=== PATIENT | female | born 1985 | race Caucasian/White ===

== ENCOUNTER 2016-09-02 20:38 | Emergency (ER) | payer BC, OTHER ==
[~2016-09-02] VITALS: Ht 167.6 cm; Wt 94.3 kg
[~2016-09-02 20:38] MED LIST: ENOX100D SQ
[2016-09-02 21:10] LABS: BASOPHILS # (AUTO) 0.1 /CMM (0.0-0.2); BASOPHILS % (AUTO) 0.5 % (0.0-2.0); DIFF TOTAL % 100 %; EOSINOPHILS # (AUTO) 0.3 /CMM (0.0-0.7); HEMATOCRIT 42 % (33-45); HEMOGLOBIN 14.4 g/dL (11.5-14.8); LYMPHOCYTES # (AUTO) 3.4 /CMM (0.8-4.8); LYMPHOCYTES % (AUTO) 27.2 % (20.0-44.0); MEAN CORPUSCULAR HEMOGLOBIN 28 PG (26.0-33.0); MEAN CORPUSCULAR HGB CONC 34 g/dl (31.0-36.0); MEAN CORPUSCULAR VOLUME 83 fL (82-100); MONOCYTES % (AUTO) 7.7 % (2.0-12.0); NEUTROPHILS # (AUTO) 7.8 /CMM (1.8-8.9); NEUTROPHILS % (AUTO) 62.6 % (43.0-81.0); PLATELET COUNT (AUTO) 348 /CMM (150-450); RED BLOOD CELL COUNT(AUTO) 5.07 MIL/uL (4.0-5.2); WHITE BLOOD COUNT (AUTO) 12.6 K/uL (4.3-11.0)
[2016-09-02 21:22] LABS: ANION GAP 13 (5-14); CALCIUM, SERUM 8.7 mg/dL (8.5-10.1); CARBON DIOXIDE 27 mmol/L (21-32); CHLORIDE 102 mmol/L (98-107); CREATININE 0.8 mg/dL (0.6-1.3); GFR 85 mL/min (>60); GLUCOSE 86 mg/dL (74-106); POTASSIUM 4.2 mmol/L (3.5-5.1); SODIUM SERUM 137 mmol/L (136-145); UREA NITROGEN, BLOOD 12 mg/dL (7-18)
[2016-09-02 21:25] LABS: INR 1.05 (0.87-1.13)
[2016-09-02 21:30] LABS: TROPONIN I < 0.017 ng/mL (0.00-0.056)
[2016-09-02] MEDS ORDERED: IV NS 0.9% 1,000 ML ONE (23:25)
[2016-09-02] MEDS ORDERED: IV SET PRIMARY 1 EA INFUS.SET MC ONE (23:25)
[2016-09-02] MEDS ORDERED: IV NS 0.9% 250 ML IV ONE (23:30)
[2016-09-02] MEDS ORDERED: CT SWABBABLE VALVE TRANS SET 1 EA INFUS.SET MC ONE (23:30)
[2016-09-02] MEDS ORDERED: IV NS 0.9% 1,000 ML BAG IV ONE (23:30)
[2016-09-02] MEDS ORDERED: IOHEXOL-350 100 ML VIAL IV ONE (23:30)
[2016-09-03 01:17] VITALS: BP 124/67
== END 2016-09-03 01:27 | disposition home or self-care (01) ==
LOC: ER 20:38
DX: R00.2 Palpitations (principal); Z88.1 Allergy status to other antibiotic agents; R79.1 Abnormal coagulation profile
CPT/HCPCS: 36415; 71010; 71275; 80048; 84484; 85025; 85730; 93005 ×2; 93970; 99285; A4606; J7030; J7050; Q9967; Z7610

== ENCOUNTER → 2016-09-06 | Outpatient (CLI) | payer BC, OTHER ==
[2016-09-06 11:01] LABS: BASOPHILS % (AUTO) 0.3 % (0.0-2.0); EOSINOPHILS % (AUTO) 0.1 % (0.0-6.0); HEMATOCRIT 44 % (33-45); HEMOGLOBIN 14.4 g/dL (11.5-14.8); LYMPHOCYTES # (AUTO) 1.9 /CMM (0.8-4.8); LYMPHOCYTES % (AUTO) 24.1 % (20.0-44.0); MEAN CORPUSCULAR HEMOGLOBIN 28 PG (26.0-33.0); MEAN CORPUSCULAR HGB CONC 33 g/dl (31.0-36.0); MEAN CORPUSCULAR VOLUME 84 fL (82-100); MONOCYTES # (AUTO) 0.5 /CMM (0.1-1.30); MONOCYTES % (AUTO) 6.2 % (2.0-12.0); NEUTROPHILS # (AUTO) 5.6 /CMM (1.8-8.9); NEUTROPHILS % (AUTO) 69.3 % (43.0-81.0); PLATELET COUNT (AUTO) 348 /CMM (150-450); RDW COEFFICIENT OF VARIATION 13.5 (11.5-15.0); RED BLOOD CELL COUNT(AUTO) 5.17 MIL/uL (4.0-5.2); WHITE BLOOD COUNT (AUTO) 8.1 K/uL (4.3-11.0)
[2016-09-06 11:17] LABS: ALBUMIN 4.1 g/dL (3.4-5.0); BILIRUBIN,TOTAL 0.5 mg/dL (0.2-1.0); CALCIUM, SERUM 8.9 mg/dL (8.5-10.1); CREATININE 0.7 mg/dL (0.6-1.3); POTASSIUM 4.3 mmol/L (3.5-5.1); TOTAL PROTEIN, SERUM 8.2 g/dL (6.4-8.2)
[2016-09-06 11:28] LABS: THYROID STIMULATING HORMONE 2.353 uIU/mL (0.358-3.74); URIC ACID 4.4 mg/dL (2.6-7.2)
[2016-09-07 12:30] LABS: HEPATITIS B SURFACE AB Reactive (.); HEPATITIS C VIRUS AB <0.1 s/co ratio (0.0-0.9)
== END ==
LOC: LAB 10:08
PROVIDERS: ATTEND Internal Medicine Hematology & Oncology
DX: I82.412 Acute embolism and thrombosis of left femoral vein (principal); Z86.718 Personal history of other venous thrombosis and embolism; Z79.01 Long term (current) use of anticoagulants
CPT/HCPCS: 36415; 80053-TC; 80061-TC; 82728-TC; 82746; 83540-TC; 84439-TC; 84443-TC; 84550-TC; 85025-TC; 86706; 86803

== ENCOUNTER 2016-09-19 09:01 | Outpatient (CLI) | payer BC, OTHER | END 2016-09-19 23:59 | disposition home or self-care (01) | LOC: CARD 09:01 | PROVIDERS: ATTEND Legal Medicine | DX: I49.8 Other specified cardiac arrhythmias (principal) | CPT/HCPCS: 93307-TC ==

== ENCOUNTER 2016-10-14 09:58 | Outpatient (CLI) | payer BC, OTHER ==
[2016-10-14 10:57] LABS: BASOPHILS % (AUTO) 0.5 % (0.0-2.0); EOSINOPHILS # (AUTO) 0.1 /CMM (0.0-0.7); EOSINOPHILS % (AUTO) 1.2 % (0.0-6.0); HEMATOCRIT 41 % (33-45); HEMOGLOBIN 13.6 g/dL (11.5-14.8); LYMPHOCYTES # (AUTO) 1.7 /CMM (0.8-4.8); LYMPHOCYTES % (AUTO) 21.8 % (20.0-44.0); MEAN CORPUSCULAR HEMOGLOBIN 28 PG (26.0-33.0); MEAN CORPUSCULAR HGB CONC 33 g/dl (31.0-36.0); MEAN CORPUSCULAR VOLUME 84 fL (82-100); MONOCYTES # (AUTO) 0.4 /CMM (0.1-1.30); NEUTROPHILS # (AUTO) 5.6 /CMM (1.8-8.9); NEUTROPHILS % (AUTO) 71.5 % (43.0-81.0); PLATELET COUNT (AUTO) 346 /CMM (150-450); RDW COEFFICIENT OF VARIATION 13.4 (11.5-15.0); WHITE BLOOD COUNT (AUTO) 7.8 K/uL (4.3-11.0)
[2016-10-14 11:13] LABS: ALBUMIN 3.8 g/dL (3.4-5.0); BILIRUBIN,TOTAL 0.3 mg/dL (0.2-1.0); CALCIUM, SERUM 8.6 mg/dL (8.5-10.1); CREATININE 0.8 mg/dL (0.6-1.3); POTASSIUM 4.2 mmol/L (3.5-5.1); TOTAL PROTEIN, SERUM 7.9 g/dL (6.4-8.2)
== END 2016-10-14 23:59 | disposition home or self-care (01) ==
LOC: LAB 09:58
PROVIDERS: ATTEND Internal Medicine Hematology & Oncology
DX: I82.412 Acute embolism and thrombosis of left femoral vein (principal); D68.59 Other primary thrombophilia; Z86.718 Personal history of other venous thrombosis and embolism; Z79.01 Long term (current) use of anticoagulants
CPT/HCPCS: 80053-TC; 85025-TC; 85378-TC

== ENCOUNTER 2016-11-08 15:25 | Outpatient (CLI) | payer BC, OTHER ==
[2016-11-08 17:19] LABS: BASOPHILS % (AUTO) 0.2 % (0.0-2.0); HEMATOCRIT 42 % (33-45); HEMOGLOBIN 13.6 g/dL (11.5-14.8); LYMPHOCYTES # (AUTO) 2.8 /CMM (0.8-4.8); LYMPHOCYTES % (AUTO) 24.4 % (20.0-44.0); MEAN CORPUSCULAR HEMOGLOBIN 28 PG (26.0-33.0); MEAN CORPUSCULAR HGB CONC 33 g/dl (31.0-36.0); MEAN CORPUSCULAR VOLUME 85 fL (82-100); MONOCYTES # (AUTO) 0.9 /CMM (0.1-1.30); MONOCYTES % (AUTO) 7.9 % (2.0-12.0); NEUTROPHILS # (AUTO) 7.8 /CMM (1.8-8.9); NEUTROPHILS % (AUTO) 67.5 % (43.0-81.0); PLATELET COUNT (AUTO) 386 /CMM (150-450); RDW COEFFICIENT OF VARIATION 13.6 (11.5-15.0); RED BLOOD CELL COUNT(AUTO) 4.91 MIL/uL (4.0-5.2); WHITE BLOOD COUNT (AUTO) 11.6 K/uL (4.3-11.0)
[2016-11-09 11:10] LABS: HEPATITIS B SURFACE AB Reactive (.); HEPATITIS C VIRUS AB <0.1 s/co ratio (0.0-0.9)
== END 2016-11-08 23:59 | disposition home or self-care (01) ==
LOC: LAB 15:25
PROVIDERS: ATTEND Internal Medicine Hematology & Oncology
DX: I82.412 Acute embolism and thrombosis of left femoral vein (principal); D68.59 Other primary thrombophilia; Z86.718 Personal history of other venous thrombosis and embolism; Z99.0 Dependence on aspirator
CPT/HCPCS: 36415; 85025-TC; 85378-TC; 86706; 86803

== ENCOUNTER 2016-12-13 12:21 | Outpatient (CLI) | payer BC, OTHER ==
[2016-12-13 14:00] LABS: BASOPHILS % (AUTO) 0.1 % (0.0-2.0); HEMATOCRIT 41 % (33-45); HEMOGLOBIN 13.8 g/dL (11.5-14.8); LYMPHOCYTES # (AUTO) 2.4 /CMM (0.8-4.8); LYMPHOCYTES % (AUTO) 24.7 % (20.0-44.0); MEAN CORPUSCULAR HEMOGLOBIN 28 PG (26.0-33.0); MEAN CORPUSCULAR HGB CONC 34 g/dl (31.0-36.0); MEAN CORPUSCULAR VOLUME 85 fL (82-100); MONOCYTES # (AUTO) 0.5 /CMM (0.1-1.30); MONOCYTES % (AUTO) 5.5 % (2.0-12.0); NEUTROPHILS # (AUTO) 6.9 /CMM (1.8-8.9); NEUTROPHILS % (AUTO) 69.7 % (43.0-81.0); PLATELET COUNT (AUTO) 351 /CMM (150-450); RDW COEFFICIENT OF VARIATION 13.5 (11.5-15.0); RED BLOOD CELL COUNT(AUTO) 4.84 MIL/uL (4.0-5.2); WHITE BLOOD COUNT (AUTO) 9.9 K/uL (4.3-11.0)
[2016-12-13 14:04] LABS: ALBUMIN 3.9 g/dL (3.4-5.0); BILIRUBIN,TOTAL 0.5 mg/dL (0.2-1.0); CALCIUM, SERUM 8.7 mg/dL (8.5-10.1); CREATININE 0.7 mg/dL (0.6-1.3)
[2016-12-13 14:53] LABS: EOSINOPHILS % (MANUAL) 1 % (0-4); LYMPHOCYTES % (MANUAL) 26 % (16-48); MONOCYTES % (MANUAL) 4 % (0-11.0); NEUTROPHILS % (MANUAL) 69 (42-76)
== END 2016-12-13 23:59 | disposition home or self-care (01) ==
LOC: LAB 12:21
PROVIDERS: ATTEND Internal Medicine Hematology & Oncology
DX: I82.412 Acute embolism and thrombosis of left femoral vein (principal); D68.59 Other primary thrombophilia; Z79.01 Long term (current) use of anticoagulants; Z86.718 Personal history of other venous thrombosis and embolism
CPT/HCPCS: 36415; 80053-TC; 82746; 85025-TC; 85378-TC

== ENCOUNTER 2016-12-14 07:13 | Emergency (ER) | payer BC, OTHER ==
[~2016-12-14] VITALS: Ht 167.6 cm; Wt 95.3 kg
--- NOTE | 2016-12-14 07:13 | NUR ---
C/C CHEST PAIN / PRESSURE SINCE 0500 THIS AM. NON RADIATING. PT DESCRIBES 12/30. RR EVEN AND UNLABORED. PT AAO X4, AMBULATORY WITH STEADY GAIT. VSS. DR MILNER AT BEDSIDE FOR EVAL. PT PLACED IN GOWN AND MONITOR.
--- NOTE | 2016-12-14 07:20 | NUR ---
EKG DONE AT BEDSIDE.
--- NOTE | 2016-12-14 07:30 | NUR ---
IV ACCESS STARTED. BLOOD DRAWN FOR LABS.
[2016-12-14 07:36] LABS: BASOPHILS % (AUTO) 0.3 % (0.0-2.0); EOSINOPHILS # (AUTO) 0.1 /CMM (0.0-0.7); EOSINOPHILS % (AUTO) 0.8 % (0.0-6.0); HEMATOCRIT 39 % (33-45); HEMOGLOBIN 13.4 g/dL (11.5-14.8); LYMPHOCYTES # (AUTO) 1.7 /CMM (0.8-4.8); LYMPHOCYTES % (AUTO) 18.3 % (20.0-44.0); MEAN CORPUSCULAR HEMOGLOBIN 29 PG (26.0-33.0); MEAN CORPUSCULAR HGB CONC 34 g/dl (31.0-36.0); MEAN CORPUSCULAR VOLUME 84 fL (82-100); MONOCYTES # (AUTO) 0.5 /CMM (0.1-1.30); MONOCYTES % (AUTO) 5.6 % (2.0-12.0); NEUTROPHILS # (AUTO) 6.9 /CMM (1.8-8.9); PLATELET COUNT (AUTO) 321 /CMM (150-450); RDW COEFFICIENT OF VARIATION 13.6 (11.5-15.0); RED BLOOD CELL COUNT(AUTO) 4.64 MIL/uL (4.0-5.2); WHITE BLOOD COUNT (AUTO) 9.2 K/uL (4.3-11.0)
[2016-12-14 07:48] LABS: CALCIUM, SERUM 8.5 mg/dL (8.5-10.1); CARBON DIOXIDE 27 mmol/L (21-32); CHLORIDE 102 mmol/L (98-107); CREATININE 0.9 mg/dL (0.6-1.3); GLUCOSE 136 mg/dL (74-106); POTASSIUM 3.8 mmol/L (3.5-5.1); SODIUM SERUM 137 mmol/L (136-145); UREA NITROGEN, BLOOD 13 mg/dL (7-18)
[2016-12-14 08:01] LABS: TROPONIN I < 0.017 ng/mL (0.00-0.056)
[2016-12-14 08:06] LABS: INR 1.21 (0.87-1.13); PROTHROMBIN TIME 13.1 SECS (9.5-12.7)
[2016-12-14] MEDS ORDERED: IV SET PRIMARY PUMP SET 1 EA INFUS.SET MC ONE (08:35)
[2016-12-14] MEDS ORDERED: IV SET PRIMARY 1 EA INFUS.SET MC ONE (08:35)
[2016-12-14] MEDS ORDERED: ONDANSETRON HCL/PF 4 MG/2 ML VIAL ONE (08:35)
[2016-12-14] MEDS ORDERED: IV NS 0.9% 500 ML IV ONE ×2 (08:35→09:00)
--- NOTE | 2016-12-14 08:45 | NUR ---
AT TO UPDATE PT WITH TESTS RESULTS. NEW ORDERS RECEIVED, PT MEDICATED ORDERED. WILL MONITOR.
[2016-12-14 08:49] LABS: CALCIUM, SERUM 8.4 mg/dL (8.5-10.1); CREATININE 0.9 mg/dL (0.6-1.3); POTASSIUM 3.9 mmol/L (3.5-5.1)
[2016-12-14 08:55] LABS: ALBUMIN 3.6 g/dL (3.4-5.0); BILIRUBIN,TOTAL 0.4 mg/dL (0.2-1.0); TOTAL PROTEIN, SERUM 7.6 g/dL (6.4-8.2)
[2016-12-14] MEDS ORDERED: ONDANSETRON HCL/PF - ER 4 MG/2 ML VIAL IV ONE (09:00)
--- NOTE | 2016-12-14 09:30 | NUR ---
IV removed. Catheter intact and site benign. Pressure and 4x4 applied to site. No bleeding noted.
--- NOTE | 2016-12-14 09:48 | NUR ---
Patient discharged to home in stable condition. Written and verbal after care instructions given. Patient verbalizes understanding of instruction.
[2016-12-14 09:49] VITALS: BP 136/71
== END 2016-12-14 09:49 | disposition home or self-care (01) ==
LOC: ER 07:15
DX: R07.89 Other chest pain (principal); D68.51 Activated protein C resistance; Z86.718 Personal history of other venous thrombosis and embolism; Z88.0 Allergy status to penicillin
CPT/HCPCS: 36415; 71010-TC; 80048-TC; 80053-TC; 84484-TC; 85025-TC; 85730-TC; A4606; J2405; J7040; Z7610

== ENCOUNTER 2016-12-23 09:25 | Outpatient (CLI) | payer BC, OTHER | END 2016-12-23 23:59 | disposition home or self-care (01) | LOC: US 09:25 | PROVIDERS: ATTEND Legal Medicine | DX: R10.11 Right upper quadrant pain (principal) | CPT/HCPCS: 76700; 78226; A9537 ==

== ENCOUNTER 2017-01-13 12:50 | Outpatient (CLI) | payer BC, OTHER ==
[2017-01-13 13:35] LABS: BASOPHILS % (AUTO) 0.2 % (0.0-2.0); HEMATOCRIT 39 % (33-45); HEMOGLOBIN 13.4 g/dL (11.5-14.8); LYMPHOCYTES # (AUTO) 2.5 /CMM (0.8-4.8); LYMPHOCYTES % (AUTO) 20.4 % (20.0-44.0); MEAN CORPUSCULAR HEMOGLOBIN 29 PG (26.0-33.0); MEAN CORPUSCULAR HGB CONC 34 g/dl (31.0-36.0); MEAN CORPUSCULAR VOLUME 84 fL (82-100); MONOCYTES # (AUTO) 0.7 /CMM (0.1-1.30); MONOCYTES % (AUTO) 5.8 % (2.0-12.0); NEUTROPHILS # (AUTO) 8.9 /CMM (1.8-8.9); NEUTROPHILS % (AUTO) 73.6 % (43.0-81.0); PLATELET COUNT (AUTO) 336 /CMM (150-450); RDW COEFFICIENT OF VARIATION 13.2 (11.5-15.0); RED BLOOD CELL COUNT(AUTO) 4.69 MIL/uL (4.0-5.2); WHITE BLOOD COUNT (AUTO) 12.1 K/uL (4.3-11.0)
[2017-01-13 13:45] LABS: AMYLASE 52 U/L (25-115); LIPASE 127 U/L (73-393)
[2017-01-13 15:03] LABS: LYMPHOCYTES % (MANUAL) 21 % (16-48); MONOCYTES % (MANUAL) 4 % (0-11.0); NEUTROPHILS % (MANUAL) 75 (42-76)
== END 2017-01-13 23:59 | disposition home or self-care (01) ==
LOC: LAB 12:50
PROVIDERS: ATTEND Internal Medicine Hematology & Oncology
DX: D68.59 Other primary thrombophilia (principal); I82.412 Acute embolism and thrombosis of left femoral vein; R10.9 Unspecified abdominal pain; Z79.01 Long term (current) use of anticoagulants
CPT/HCPCS: 36415; 82150-TC; 83690-TC; 85025-TC; 85378-TC

== ENCOUNTER 2017-02-04 07:28 | Outpatient (CLI) | payer BC ==
[2017-02-04 08:28] LABS: BASOPHILS % (AUTO) 0.2 % (0.0-2.0); HEMATOCRIT 41 % (33-45); HEMOGLOBIN 13.8 g/dL (11.5-14.8); LYMPHOCYTES # (AUTO) 1.7 /CMM (0.8-4.8); MEAN CORPUSCULAR HEMOGLOBIN 28 PG (26.0-33.0); MEAN CORPUSCULAR HGB CONC 34 g/dl (31.0-36.0); MEAN CORPUSCULAR VOLUME 84 fL (82-100); MONOCYTES # (AUTO) 0.6 /CMM (0.1-1.30); MONOCYTES % (AUTO) 5.2 % (2.0-12.0); NEUTROPHILS % (AUTO) 79.6 % (43.0-81.0); PLATELET COUNT (AUTO) 361 /CMM (150-450); RDW COEFFICIENT OF VARIATION 13.4 (11.5-15.0); RED BLOOD CELL COUNT(AUTO) 4.88 MIL/uL (4.0-5.2); WHITE BLOOD COUNT (AUTO) 11.3 K/uL (4.3-11.0)
[2017-02-04 08:37] LABS: CALCIUM, SERUM 8.8 mg/dL (8.5-10.1); CREATININE 0.9 mg/dL (0.6-1.3); POTASSIUM 3.9 mmol/L (3.5-5.1)
[2017-02-04 08:38] LABS: ALBUMIN 3.9 g/dL (3.4-5.0); BILIRUBIN,TOTAL 0.2 mg/dL (0.2-1.0); TOTAL PROTEIN, SERUM 8.1 g/dL (6.4-8.2)
== END 2017-02-04 23:59 | disposition home or self-care (01) ==
LOC: LAB 07:28
PROVIDERS: ATTEND Internal Medicine Hematology & Oncology
DX: I82.412 Acute embolism and thrombosis of left femoral vein (principal); D68.59 Other primary thrombophilia; Z79.01 Long term (current) use of anticoagulants
CPT/HCPCS: 36415; 80053-TC; 82746; 85025-TC; 85378-TC

== ENCOUNTER 2017-02-14 10:58 | Inpatient (IN) | payer BC ==
[~2017-02-14] VITALS: Ht 167.6 cm; Wt 95.3 kg
[2017-02-14] MEDS ORDERED: BUPIVACAINE MPF W/EPI 0.25% 30 ML VIAL ONE (12:45)
[2017-02-14] MEDS ORDERED: LIDOCAINE 0.5% HCL 50 ML VIAL ONE (12:45)
[2017-02-14] MEDS ORDERED: IOHEXOL 240MG/ML 50 ML IV ONE (13:05)
[2017-02-14] MEDS ORDERED: FENTANYL PF 250MCG/5ML AMPUL ONE (13:18)
[2017-02-14] MEDS ORDERED: MIDAZOLAM HCL 2 MG/2ML VIAL ONE (13:19)
[2017-02-14] MEDS ORDERED: METOCLOPRAMIDE HCL 10 MG/2 ML VIAL ONE ×2 (13:19→22:02)
[2017-02-14] MEDS ORDERED: ROCURONIUM BROMIDE 50 MG/5 ML ONE (13:19)
[2017-02-14] MEDS ORDERED: METRONIDAZOLE 500MG/ NS 100ML 100 ML IV ONE (13:49)
[2017-02-14] MEDS ORDERED: HYDROMORPHONE 1 MG/1 ML DISP.SYRIN ONE ×2 (15:17→15:29)
[2017-02-14] MEDS ORDERED: ONDANSETRON HCL/PF 4 MG/2 ML VIAL IVP PRN ×2 (15:30→22:00)
[2017-02-14] MEDS ORDERED: HYDROCODONE/APAP 5/325MG 1 EACH TABLET PO PRN ×2 (15:30→22:00)
[2017-02-14] MEDS ORDERED: ACETAMINOPHEN 325 MG TABLET PO PRN ×2 (15:30→22:00)
[2017-02-14] MEDS ORDERED: HYDROMORPHONE INJ 2 MG/ML DISP.SYRIN IV PRN (15:30)
[2017-02-14] MEDS ORDERED: HYDROMORPHONE INJ 2 MG/ML DISP.SYRIN IV ONE (16:03)
[2017-02-14] MEDS ORDERED: HYDROMORPHONE 1 MG/1 ML DISP.SYRIN IV PRN (16:15)
--- NOTE | 2017-02-14 16:24 | NUR ---
MS RADIOLOGY TECHNOLOGIST NOTE PATIENT IS ALERT AND ORIENTED x4. PATIENT STATES 8/10 PAIN, ABDOMINAL AREA. PATIENT MEDICATION GIVEN. NO SOB OR DISTRESS NOTED. CALL LIGHT WITHIN REACH. SAFETY MEASURES IMPLEMENTED. IV ON LEFT AC INTACT AND PATENT NO REDNESS OR SWELLING NOTED. ABLE TO COMMUNICATE NEEDS. POST-OP LAP CELINA DONE BY DR. HOBBS. ALL BELONGINGS ACCOUNTED FOR. WILL CONTINUE TO MONITOR
--- NOTE | 2017-02-14 18:30 | NUR ---
MS RN CLOSING NOTE PATIENT IS ALERT AND ORIENTED x4. NO PAIN AT THIS TIME. NO SOB OR DISTRESS NOTED. CALL LIGHT WITHIN REACH AT ALL TIMES. SAFETY MEASURES IMPLEMENTED. ABLE TO COMMUNICATE NEEDS. IV INTACT AND PATENT NO REDNESS OR SWELLING NOTED. WILL ENDORSE TO PRODUCER NURSE
[2017-02-14 20:00] VITALS: BP 130/76
--- NOTE | 2017-02-14 20:00 | NUR ---
MS RN N9
--- NOTE | 2017-02-14 20:00 | NUR ---
MS RN NOTE: PATIENT RESTING IN BED, NO ACUTE DISTRESS NOTED, MOM AT BEDSIDE. BREATHING EVEN AND UNLABORED, NO SOB NOTED. IV TO LAC IN PLACE. PATIENT COMPLAINS OF NAUSEA/VOMITING EARLIER WITH ABOUT 300ML OF HER DINNER. PATIENT ALREADY RECEIVED ZOFRAN AT 1800. PATIENT COMPLAINS OF PAIN 6/10 TO ABDOMEN, NORCO 5/325MG 1 TAB ORAL GIVEN PER MD ORDER. INCISION SITES TO ABDOMEN, CLEAN AND DRY, NO BLEEDING NOTED. ICE BAG AT BEDSIDE. HOB ELEVATED. BED LOCKED AND IN LOWEST POSITION, CALL LIGHT IN REACH. WILL CONTINUE TO MONITOR.
[2017-02-14] MEDS ORDERED: IV NS 0.9% 1,000 ML IV PRN (21:45)
[2017-02-14] MEDS ORDERED: MAG HYDROX/AL HYDROX/SIMETH 30 ML UDC PO PRN (22:00)
[2017-02-14] MEDS ORDERED: Z GUARD REMEDY 2 OZ OINT TP PRN (22:00)
[2017-02-14] MEDS ORDERED: MAGNESIUM HYDROXIDE 30 ML UDC PO PRN (22:00)
[2017-02-14] MEDS ORDERED: METOCLOPRAMIDE HCL 10 MG/2 ML VIAL IV PRN (22:00)
[2017-02-14] MEDS ORDERED: ZOLPIDEM TARTRATE 5 MG TABLET PO PRN (22:00)
[2017-02-14] MEDS: HYDROCODONE/APAP 5/325MG 1 EACH TABLET PO PRN (22:29)
--- NOTE | 2017-02-14 22:30 | NUR ---
MS RN NOTE: PATIENT CONTINUES TO FEEL NAUSEA AND ABDOMINAL PAIN. NORCO 5/325MG 2 TABS ORAL GIVEN PER MD ORDER. CALL RESTORATION OFFICER MD, SPOKE TO DR. TREVINO, RECEIVE ADMIT ORDERS AND ORDERS FOR REGLAN 10MG IV. REGLAN 10MG IV GIVEN PER MD ORDER. WILL CONTINUE TO MONITOR.
[2017-02-15] MEDS ORDERED: RIVA10TA PO ×2 (00:11→00:14)
--- NOTE | 2017-02-15 01:30 | NUR ---
MS RN NOTE: CLARIFIED PATIENT ANTICOAGULANT MEDICATIONS. PER PATIENT, SHE IS NO LONGER ON LOVENOX AND IS ON XARELTO 20MG ORAL DAILY. SPOKE TO SENIOR MANUFACTURING SUPERVISOR MD, DR. TREVINO AND RECEIVED ORDERS TO ADJUST MEDICATION. DISCONTINUE LOVENOX AND PATIENT TO START XARELTO 20MG ORAL DAILY AT 5PM. ORDER NOTED AND CARRIED OUT.
--- NOTE | 2017-02-15 02:30 | NUR ---
MS RN NOTE: PATIENT RESTING IN BED, NO ACUTE DISTRESS NOTED. REPORT GIVEN TO KEN FOR CONTINUATION OF CARE.
--- NOTE | 2017-02-15 02:31 | NUR ---
MS/RN NOTES RECEIVED REPORT FROM CARMINE DIAZ. RECEIVED PT. LYING IN BED RESTING. BREATHING EVEN AND UNLABORED ON ROOM AIR. NO SOB, RESPIRATORY DISTRESS OR S/S OF PAIN NOTED AT THIS TIME. WILL CONTINUE TO MONITOR.
[2017-02-15] MEDS: HYDROCODONE/APAP 5/325MG 1 EACH TABLET PO PRN ×2 (06:17→10:57)
--- NOTE | 2017-02-15 06:41 | NUR ---
MS/RN NOTES PT. IS LYING IN BED RESTING. BREATHING EVEN AND UNLABORED, NO SOB, RESPIRATORY DISTRESS OR COMPLAINTS OF PAIN NOTED AT THIS TIME. NO COMPLAINTS OF N/V NOTED AT THIS TIME. PT. IS S/P LAP CELINA 02/[address] HOBBS. PT. WITH INCISION SITES TO ABDOMEN, CLEAN AND DRY, NO BLEEDING OR DRAINAGE NOTED. PT. WITH LEFT AC 20 GAUGE IV SALINE LOCK PRESENT, PATENT AND INTACT. PT. REFUSING IV FLUIDS AT THIS TIME. PT. STATES SHE IS DRINKING A LOT OF WATER. BED IN LOWEST POSITION, SIDE RAILS UP X2, CALL LIGHT WITHIN REACH, WILL ENDORSE TO DAYSHIFT NURSE FOR CONTINUITY OF CARE.
--- NOTE | 2017-02-15 06:55 | NUR ---
MS/RN NOTES PT. REFUSING MRSA SWAB TO BE DONE. EDUCATED PT. ON IMPORTANCE. PT. CONTINUES TO REFUSE. WILL CONTINUE TO MONITOR.
--- NOTE | 2017-02-15 07:05 | NUR ---
MS RN OPENING NOTE REPORT RECEIVED ON THE PATIENT AT THE BEDSIDE. PATIENT IS A/O X 4 AND COOPERATIVE. PATIENT IS IN BED AWAKE AND RESPONSIVE. VS WNL WILL CONTINUE TO MONITOR. BED IS LOCKED IN LOWEST POSITION. SIDE RAILS UP X 2. ALL NEEDS WITHIN REACH.
[2017-02-15] MEDS ORDERED: PANTOPRAZOLE 40 MG TABLET.DR PO SCH (07:30)
[2017-02-15 07:45] LABS: HEMATOCRIT 40 % (33-45); HEMOGLOBIN 13.7 g/dL (11.5-14.8); LYMPHOCYTES % (AUTO) 5.5 % (20.0-44.0); MEAN CORPUSCULAR HEMOGLOBIN 29 PG (26.0-33.0); MEAN CORPUSCULAR HGB CONC 34 g/dl (31.0-36.0); MEAN CORPUSCULAR VOLUME 85 fL (82-100); MONOCYTES # (AUTO) 0.7 /CMM (0.1-1.30); MONOCYTES % (AUTO) 3.9 % (2.0-12.0); NEUTROPHILS # (AUTO) 16.8 /CMM (1.8-8.9); NEUTROPHILS % (AUTO) 90.6 % (43.0-81.0); PLATELET COUNT (AUTO) 331 /CMM (150-450); RDW COEFFICIENT OF VARIATION 12.8 (11.5-15.0); RED BLOOD CELL COUNT(AUTO) 4.74 MIL/uL (4.0-5.2); WHITE BLOOD COUNT (AUTO) 18.5 K/uL (4.3-11.0)
[2017-02-15 08:00] VITALS: BP 119/78
[2017-02-15 08:08] LABS: CALCIUM, SERUM 8.8 mg/dL (8.5-10.1); CREATININE 0.8 mg/dL (0.6-1.3); MAGNESIUM 1.7 mg/dL (1.8-2.4); PHOSPHORUS 3.7 mg/dL (2.5-4.9); POTASSIUM 4.2 mmol/L (3.5-5.1)
--- NOTE | 2017-02-15 08:53 | NUR ---
MS RN NOTE DR MAURER ORDERED MAGNESIUM OXIDE 400MG X2 FOR MAGNESIUM 1.7. PHARMACY INFORMED.
--- NOTE | 2017-02-15 08:59 | NUR ---
MS RN NOTE CLARIFIED MAGNESIUM ORDER WITH THE PHARMACY. ORDER CHANGED TO MAGNESIUM OXIDE 800 MG ONCE.
[2017-02-15] MEDS ORDERED: MAGNESIUM OXIDE 400 MG TABLET PO ONE ×2 (09:00)
[2017-02-15] MEDS ORDERED: ENOXAPARIN SODIUM 100 MG/ML DISP.SYRIN SQ SCH (09:00)
--- NOTE | 2017-02-15 11:45 | NUR ---
MS PLASMA CENTER TECHNICIAN NOTE PATIENT HAS BEEN DISCHARGED BY DR. MAURER. DISCHARGE ORDER RECEIVE. PATIENT PRIVIDED WITH D/C PAPERWORK/EDUCATION. ALL BELONGINGS ARE ACCOUNTED FOR. VS WNL, PATIENT IS STABLE. PATIENT'S MOTHER, MAYRA, IS TAKING HER HOME. PATIENT WILLED OUT FROM THE HOSPITAL BY THE ER RN IN STABLE CONDITION.
[2017-02-15] MEDS ORDERED: RIVAROXABAN 10 MG TABLET PO SCH (17:00)
== END 2017-02-15 11:45 | disposition home or self-care (01) | DRG 418 ==
LOC: DS 10:58 → MED 14:46
PROVIDERS: ADMIT Internal Medicine; ATTEND Legal Medicine
PROC: 0FB04ZX Excision of Liver, Percutaneous Endoscopic Approach, Diagnostic (ICD-10-PCS; principal; 2017-02-14 13:55)
PROC: 0FT44ZZ Resection of Gallbladder, Percutaneous Endoscopic Approach (ICD-10-PCS; principal; 2017-02-14 13:55)
PROC: BF0CYZZ Plain Radiography of Hepatobiliary System, All using Other Contrast (ICD-10-PCS; principal; 2017-02-14 13:55)
DX: K80.20 Calculus of gallbladder without cholecystitis without obstruction (principal); D68.51 Activated protein C resistance; E83.42 Hypomagnesemia; G24.9 Dystonia, unspecified; Z86.718 Personal history of other venous thrombosis and embolism; D72.829 Elevated white blood cell count, unspecified; Z88.1 Allergy status to other antibiotic agents; R73.9 Hyperglycemia, unspecified
CPT/HCPCS: 36415; 74000-TC; 80048-TC; 83735-TC; 84100-TC; 84703-TC; 85025-TC; 88304-TC; 88305-TC; 88307-TC; 88313-TC; J1170; J2250; J2405; J2765; J3010; J3490; J7030; Q9966

== ENCOUNTER 2017-02-21 10:37 | Outpatient (CLI) | payer BC ==
[~2017-02-21 10:37] MED LIST changes: -ENOX100D SQ; +RIVA10TA PO
[2017-02-21 11:20] LABS: BASOPHILS % (AUTO) 0.3 % (0.0-2.0); EOSINOPHILS # (AUTO) 0.4 /CMM (0.0-0.7); EOSINOPHILS % (AUTO) 3.5 % (0.0-6.0); HEMATOCRIT 41 % (33-45); HEMOGLOBIN 13.6 g/dL (11.5-14.8); LYMPHOCYTES # (AUTO) 2.6 /CMM (0.8-4.8); LYMPHOCYTES % (AUTO) 23.5 % (20.0-44.0); MEAN CORPUSCULAR HEMOGLOBIN 28 PG (26.0-33.0); MEAN CORPUSCULAR HGB CONC 34 g/dl (31.0-36.0); MEAN CORPUSCULAR VOLUME 84 fL (82-100); MONOCYTES # (AUTO) 0.7 /CMM (0.1-1.30); MONOCYTES % (AUTO) 6.2 % (2.0-12.0); NEUTROPHILS # (AUTO) 7.2 /CMM (1.8-8.9); NEUTROPHILS % (AUTO) 66.5 % (43.0-81.0); PLATELET COUNT (AUTO) 380 /CMM (150-450); RDW COEFFICIENT OF VARIATION 13.2 (11.5-15.0); RED BLOOD CELL COUNT(AUTO) 4.82 MIL/uL (4.0-5.2); WHITE BLOOD COUNT (AUTO) 10.9 K/uL (4.3-11.0)
[2017-02-21 11:54] LABS: ALBUMIN 3.8 g/dL (3.4-5.0); BILIRUBIN,TOTAL 0.3 mg/dL (0.2-1.0); CALCIUM, SERUM 8.9 mg/dL (8.5-10.1); CREATININE 0.8 mg/dL (0.6-1.3); POTASSIUM 4.3 mmol/L (3.5-5.1); TOTAL PROTEIN, SERUM 8.2 g/dL (6.4-8.2)
== END 2017-02-21 23:59 | disposition home or self-care (01) ==
LOC: LAB 10:37
PROVIDERS: ATTEND Internal Medicine Hematology & Oncology
DX: I82.412 Acute embolism and thrombosis of left femoral vein (principal); D68.59 Other primary thrombophilia; Z79.01 Long term (current) use of anticoagulants; Z86.718 Personal history of other venous thrombosis and embolism
CPT/HCPCS: 36415; 80053-TC; 82746; 85025-TC; 85378-TC

== ENCOUNTER 2017-03-20 11:52 | Outpatient (CLI) | payer BC ==
[2017-03-20 12:46] LABS: BASOPHILS % (AUTO) 0.2 % (0.0-2.0); EOSINOPHILS # (AUTO) 0.1 /CMM (0.0-0.7); EOSINOPHILS % (AUTO) 1.2 % (0.0-6.0); HEMATOCRIT 39 % (33-45); HEMOGLOBIN 12.9 g/dL (11.5-14.8); LYMPHOCYTES # (AUTO) 2.6 /CMM (0.8-4.8); LYMPHOCYTES % (AUTO) 21.3 % (20.0-44.0); MEAN CORPUSCULAR HEMOGLOBIN 28 PG (26.0-33.0); MEAN CORPUSCULAR HGB CONC 34 g/dl (31.0-36.0); MEAN CORPUSCULAR VOLUME 84 fL (82-100); MONOCYTES # (AUTO) 0.7 /CMM (0.1-1.30); MONOCYTES % (AUTO) 5.7 % (2.0-12.0); NEUTROPHILS # (AUTO) 8.8 /CMM (1.8-8.9); NEUTROPHILS % (AUTO) 71.6 % (43.0-81.0); PLATELET COUNT (AUTO) 314 /CMM (150-450); RDW COEFFICIENT OF VARIATION 13.7 (11.5-15.0); RED BLOOD CELL COUNT(AUTO) 4.59 MIL/uL (4.0-5.2); WHITE BLOOD COUNT (AUTO) 12.3 K/uL (4.3-11.0)
[2017-03-20 13:17] LABS: ALBUMIN 3.8 g/dL (3.4-5.0); BILIRUBIN,TOTAL 0.4 mg/dL (0.2-1.0); CALCIUM, SERUM 8.9 mg/dL (8.5-10.1); CREATININE 0.7 mg/dL (0.6-1.3); POTASSIUM 3.7 mmol/L (3.5-5.1); TOTAL PROTEIN, SERUM 7.8 g/dL (6.4-8.2)
== END 2017-03-20 23:59 | disposition home or self-care (01) ==
LOC: LAB 11:52
PROVIDERS: ATTEND Internal Medicine Hematology & Oncology
DX: I82.412 Acute embolism and thrombosis of left femoral vein (principal); D68.59 Other primary thrombophilia; Z79.01 Long term (current) use of anticoagulants
CPT/HCPCS: 36415; 80053-TC; 85025-TC; 85378-TC

== ENCOUNTER 2017-04-14 13:48 | Outpatient (CLI) | payer BC ==
[2017-04-14 14:52] LABS: BASOPHILS # (AUTO) 0.2 /CMM (0.0-0.2); BASOPHILS % (AUTO) 1.8 % (0.0-2.0); EOSINOPHILS # (AUTO) 0.1 /CMM (0.0-0.7); EOSINOPHILS % (AUTO) 0.7 % (0.0-6.0); HEMATOCRIT 41 % (33-45); HEMOGLOBIN 13.8 g/dL (11.5-14.8); LYMPHOCYTES # (AUTO) 2.6 /CMM (0.8-4.8); LYMPHOCYTES % (AUTO) 22.3 % (20.0-44.0); MEAN CORPUSCULAR HEMOGLOBIN 28 PG (26.0-33.0); MEAN CORPUSCULAR HGB CONC 34 g/dl (31.0-36.0); MEAN CORPUSCULAR VOLUME 84 fL (82-100); MONOCYTES # (AUTO) 0.8 /CMM (0.1-1.30); MONOCYTES % (AUTO) 7.3 % (2.0-12.0); NEUTROPHILS # (AUTO) 7.9 /CMM (1.8-8.9); NEUTROPHILS % (AUTO) 67.9 % (43.0-81.0); PLATELET COUNT (AUTO) 369 /CMM (150-450); RDW COEFFICIENT OF VARIATION 13.4 (11.5-15.0); RED BLOOD CELL COUNT(AUTO) 4.88 MIL/uL (4.0-5.2); WHITE BLOOD COUNT (AUTO) 11.6 K/uL (4.3-11.0)
[2017-04-14 15:06] LABS: BILIRUBIN,TOTAL 0.3 mg/dL (0.2-1.0); CALCIUM, SERUM 9.4 mg/dL (8.5-10.1); CREATININE 0.6 mg/dL (0.6-1.3); POTASSIUM 3.6 mmol/L (3.5-5.1); TOTAL PROTEIN, SERUM 8.2 g/dL (6.4-8.2)
== END 2017-04-14 23:59 | disposition home or self-care (01) ==
LOC: LAB 13:48
PROVIDERS: ATTEND Internal Medicine Hematology & Oncology
DX: I82.412 Acute embolism and thrombosis of left femoral vein (principal); D68.59 Other primary thrombophilia; Z79.01 Long term (current) use of anticoagulants; Z86.718 Personal history of other venous thrombosis and embolism
CPT/HCPCS: 36415; 80053-TC; 85025-TC; 85378-TC

== ENCOUNTER 2017-05-20 09:02 | Emergency (ER) | payer BC, OTHER ==
[~2017-05-20] VITALS: Ht 167.6 cm; Wt 95.3 kg
--- NOTE | 2017-05-20 09:17 | NUR ---
PT IS STAFF NURSE WORKING ON FLOOR WALKED INTO ER C/O N/V DIARRHEA X 3 DAYS. PALLOR.
[2017-05-20] MEDS ORDERED: IV NS 0.9% 1,000 ML BAG IV ONE (10:00)
[2017-05-20] MEDS ORDERED: ONDANSETRON HCL/PF 4 MG/2 ML VIAL IVP ONE (10:00)
[2017-05-20] MEDS ORDERED: ONDANSETRON HCL/PF 4 MG/2 ML VIAL ONE (10:07)
[2017-05-20 10:11] LABS: APPEARANCE,URINE Clear (CLEAR); BILIRUBIN,URINE Negative (NEGATIVE); BLOOD, URINE Small Ery/uL (NEGATIVE); COLOR,URINE Yellow (YELLOW); KETONES,URINE Negative (NEGATIVE); LEUKOCYTE ESTERASE ,URINE Negative (NEGATIVE); NITRITE, URINE Negative (NEGATIVE); PH,URINE 5.5 (5.0-8.0); PROTEIN,URINE Trace mg/dl (NEGATIVE); UGLUCOSE Negative (NEGATIVE); UROBILINOGEN,URINE 0.2 EU/dL (0.2)
[2017-05-20 10:13] LABS: BACTERIA,URINE Few /HPF (None Seen); SQUAMOUS EPITHELIAL CELL,UR Few /HPF (None Seen)
[2017-05-20 10:17] LABS: CALCIUM, SERUM 8.8 mg/dL (8.5-10.1); CREATININE 0.8 mg/dL (0.6-1.3); POTASSIUM 3.4 mmol/L (3.5-5.1)
[2017-05-20 10:22] LABS: ALBUMIN 4.2 g/dL (3.4-5.0); BILIRUBIN,DIRECT 0.1 mg/dL (0.0-0.2); BILIRUBIN,TOTAL 0.3 mg/dL (0.2-1.0); TOTAL PROTEIN, SERUM 8.5 g/dL (6.4-8.2)
[2017-05-20 11:43] LABS: HEMATOCRIT 45 % (33-45); MEAN CORPUSCULAR HEMOGLOBIN 28 PG (26.0-33.0); MEAN CORPUSCULAR HGB CONC 34 g/dl (31.0-36.0); MEAN CORPUSCULAR VOLUME 85 fL (82-100); PLATELET COUNT (AUTO) 336 /CMM (150-450); RDW COEFFICIENT OF VARIATION 12.5 (11.5-15.0); RED BLOOD CELL COUNT(AUTO) 5.28 MIL/uL (4.0-5.2); WHITE BLOOD COUNT (AUTO) 11.5 K/uL (4.3-11.0)
[2017-05-20 11:44] LABS: BASOPHILS % (AUTO) 0.7 % (0.0-2.0); EOSINOPHILS # (AUTO) 0.1 /CMM (0.0-0.7); EOSINOPHILS % (AUTO) 0.8 % (0.0-6.0); LYMPHOCYTES # (AUTO) 1.7 /CMM (0.8-4.8); LYMPHOCYTES % (AUTO) 14.7 % (20.0-44.0); MONOCYTES # (AUTO) 0.6 /CMM (0.1-1.30); NEUTROPHILS % (AUTO) 78.8 % (43.0-81.0)
[2017-05-20 11:45] LABS: BASOPHILS # (AUTO) 0.1 /CMM (0.0-0.2)
[2017-05-20 12:22] VITALS: BP 131/88
== END 2017-05-20 12:23 | disposition home or self-care (01) ==
LOC: ER 09:03
DX: A08.4 Viral intestinal infection, unspecified (principal); D68.51 Activated protein C resistance; Z90.49 Acquired absence of other specified parts of digestive tract; Z90.89 Acquired absence of other organs; Z88.1 Allergy status to other antibiotic agents
CPT/HCPCS: 36415; 80048; 80076; 81001; 83690; 84703; 85025; 87086; 96361; 96374; 99284; A4606; J2405; J7030; Z7610; 81000-TC

== ENCOUNTER 2017-05-22 15:50 | Outpatient (CLI) | payer BC, OTHER ==
[2017-05-22 16:14] LABS: BASOPHILS % (AUTO) 0.5 % (0.0-2.0); HEMATOCRIT 40 % (33-45); HEMOGLOBIN 13.2 g/dL (11.5-14.8); LYMPHOCYTES # (AUTO) 2.3 /CMM (0.8-4.8); LYMPHOCYTES % (AUTO) 25.3 % (20.0-44.0); MEAN CORPUSCULAR HEMOGLOBIN 28 PG (26.0-33.0); MEAN CORPUSCULAR HGB CONC 33 g/dl (31.0-36.0); MEAN CORPUSCULAR VOLUME 85 fL (82-100); MONOCYTES # (AUTO) 0.7 /CMM (0.1-1.30); MONOCYTES % (AUTO) 7.3 % (2.0-12.0); NEUTROPHILS % (AUTO) 66.9 % (43.0-81.0); PLATELET COUNT (AUTO) 318 /CMM (150-450); RDW COEFFICIENT OF VARIATION 13.3 (11.5-15.0)
[2017-05-22 16:34] LABS: ALBUMIN 3.6 g/dL (3.4-5.0); BILIRUBIN,TOTAL 0.2 mg/dL (0.2-1.0); CALCIUM, SERUM 8.5 mg/dL (8.5-10.1); CREATININE 0.7 mg/dL (0.6-1.3); POTASSIUM 3.8 mmol/L (3.5-5.1); TOTAL PROTEIN, SERUM 7.4 g/dL (6.4-8.2)
== END 2017-05-22 23:59 | disposition home or self-care (01) ==
LOC: LAB 15:50
PROVIDERS: ATTEND Internal Medicine Hematology & Oncology
DX: I82.412 Acute embolism and thrombosis of left femoral vein (principal); D68.59 Other primary thrombophilia; Z86.718 Personal history of other venous thrombosis and embolism
CPT/HCPCS: 36415; 80053-TC; 85025-TC; 85378-TC

== ENCOUNTER 2017-06-24 11:45 | Outpatient (CLI) | payer BC ==
[2017-06-24 13:07] LABS: BASOPHILS # (AUTO) 0.1 /CMM (0.0-0.2); EOSINOPHILS # (AUTO) 0.2 /CMM (0.0-0.7); HEMATOCRIT 41 % (33-45); HEMOGLOBIN 14.1 g/dL (11.5-14.8); LYMPHOCYTES # (AUTO) 2.4 /CMM (0.8-4.8); LYMPHOCYTES % (AUTO) 22.2 % (20.0-44.0); MEAN CORPUSCULAR HEMOGLOBIN 28 PG (26.0-33.0); MEAN CORPUSCULAR HGB CONC 34 g/dl (31.0-36.0); MEAN CORPUSCULAR VOLUME 82 fL (82-100); MONOCYTES # (AUTO) 0.7 /CMM (0.1-1.30); MONOCYTES % (AUTO) 6.5 % (2.0-12.0); NEUTROPHILS # (AUTO) 7.5 /CMM (1.8-8.9); NEUTROPHILS % (AUTO) 68.3 % (43.0-81.0); PLATELET COUNT (AUTO) 440 /CMM (150-450); RDW COEFFICIENT OF VARIATION 12.2 (11.5-15.0); RED BLOOD CELL COUNT(AUTO) 5.03 MIL/uL (4.0-5.2); WHITE BLOOD COUNT (AUTO) 10.9 K/uL (4.3-11.0)
[2017-06-24 13:15] LABS: BILIRUBIN,TOTAL 0.5 mg/dL (0.2-1.0); CALCIUM, SERUM 9.3 mg/dL (8.5-10.1); CREATININE 0.7 mg/dL (0.6-1.3); POTASSIUM 4.4 mmol/L (3.5-5.1); TOTAL PROTEIN, SERUM 8.5 g/dL (6.4-8.2)
== END 2017-06-24 23:59 | disposition home or self-care (01) ==
LOC: LAB 11:45
PROVIDERS: ATTEND Internal Medicine Hematology & Oncology
DX: Z76.0 Encounter for issue of repeat prescription (principal)
CPT/HCPCS: 36415; 80053-TC; 85025-TC; 85378-TC

== ENCOUNTER 2017-08-08 14:01 | Outpatient (CLI) | payer BC ==
[2017-08-08 15:40] LABS: BASOPHILS % (AUTO) 0.3 % (0.0-2.0); HEMATOCRIT 41 % (33-45); HEMOGLOBIN 13.9 g/dL (11.5-14.8); LYMPHOCYTES # (AUTO) 1.8 /CMM (0.8-4.8); LYMPHOCYTES % (AUTO) 27.8 % (20.0-44.0); MEAN CORPUSCULAR HEMOGLOBIN 29 PG (26.0-33.0); MEAN CORPUSCULAR HGB CONC 34 g/dl (31.0-36.0); MEAN CORPUSCULAR VOLUME 84 fL (82-100); MONOCYTES # (AUTO) 0.6 /CMM (0.1-1.30); NEUTROPHILS # (AUTO) 3.9 /CMM (1.8-8.9); NEUTROPHILS % (AUTO) 61.9 % (43.0-81.0); PLATELET COUNT (AUTO) 332 /CMM (150-450); RDW COEFFICIENT OF VARIATION 14.2 (11.5-15.0); RED BLOOD CELL COUNT(AUTO) 4.88 MIL/uL (4.0-5.2); WHITE BLOOD COUNT (AUTO) 6.4 K/uL (4.3-11.0)
[2017-08-08 16:01] LABS: ALBUMIN 3.7 g/dL (3.4-5.0); BILIRUBIN,TOTAL 0.3 mg/dL (0.2-1.0); CREATININE 0.9 mg/dL (0.6-1.3); TOTAL PROTEIN, SERUM 8.2 g/dL (6.4-8.2)
== END 2017-08-08 23:59 | disposition home or self-care (01) ==
LOC: LAB 14:01
PROVIDERS: ATTEND Internal Medicine Hematology & Oncology
DX: Z00.01 Encounter for general adult medical examination with abnormal findings (principal); R79.89 Other specified abnormal findings of blood chemistry
CPT/HCPCS: 36415; 80053-TC; 85025-TC; 85378-TC

== ENCOUNTER 2017-08-20 13:42 | Outpatient (CLI) | payer BC | END 2017-08-20 23:59 | disposition home or self-care (01) | LOC: LAB 13:42 | PROVIDERS: ATTEND Internal Medicine Hematology & Oncology | DX: I82.412 Acute embolism and thrombosis of left femoral vein (principal) | CPT/HCPCS: 36415; 85378-TC ==

== ENCOUNTER 2017-09-10 11:56 | Outpatient (CLI) | payer BC ==
[2017-09-10 12:46] LABS: BASOPHILS % (AUTO) 0.2 % (0.0-2.0); HEMATOCRIT 39 % (33-45); HEMOGLOBIN 13.3 g/dL (11.5-14.8); LYMPHOCYTES # (AUTO) 2.3 /CMM (0.8-4.8); LYMPHOCYTES % (AUTO) 16.5 % (20.0-44.0); MEAN CORPUSCULAR HEMOGLOBIN 29 PG (26.0-33.0); MEAN CORPUSCULAR HGB CONC 34 g/dl (31.0-36.0); MEAN CORPUSCULAR VOLUME 85 fL (82-100); MONOCYTES # (AUTO) 0.8 /CMM (0.1-1.30); MONOCYTES % (AUTO) 5.5 % (2.0-12.0); NEUTROPHILS # (AUTO) 10.8 /CMM (1.8-8.9); NEUTROPHILS % (AUTO) 77.8 % (43.0-81.0); PLATELET COUNT (AUTO) 344 /CMM (150-450); RDW COEFFICIENT OF VARIATION 13.9 (11.5-15.0); RED BLOOD CELL COUNT(AUTO) 4.62 MIL/uL (4.0-5.2); WHITE BLOOD COUNT (AUTO) 13.8 K/uL (4.3-11.0)
[2017-09-10 13:08] LABS: ALBUMIN 4.2 g/dL (3.4-5.0); BILIRUBIN,TOTAL 0.4 mg/dL (0.2-1.0); CREATININE 0.7 mg/dL (0.6-1.3); POTASSIUM 4.1 mmol/L (3.5-5.1); TOTAL PROTEIN, SERUM 8.3 g/dL (6.4-8.2)
== END 2017-09-10 23:59 | disposition home or self-care (01) ==
LOC: LAB 11:56
PROVIDERS: ATTEND Internal Medicine Hematology & Oncology
DX: Z00.01 Encounter for general adult medical examination with abnormal findings (principal)
CPT/HCPCS: 36415; 80053-TC; 85025-TC; 85378-TC

== ENCOUNTER 2017-10-16 13:55 | Outpatient (CLI) | payer BC ==
[2017-10-16 14:38] LABS: ALBUMIN 3.7 g/dL (3.4-5.0); BILIRUBIN,TOTAL 0.4 mg/dL (0.2-1.0); CALCIUM, SERUM 8.6 mg/dL (8.5-10.1); CREATININE 0.8 mg/dL (0.6-1.3); POTASSIUM 3.8 mmol/L (3.5-5.1); TOTAL PROTEIN, SERUM 7.8 g/dL (6.4-8.2)
[2017-10-16 14:43] LABS: BASOPHILS % (AUTO) 0.4 % (0.0-2.0); EOSINOPHILS % (AUTO) 1.2 % (0.0-6.0); HEMATOCRIT 39 % (33-45); HEMOGLOBIN 13.1 g/dL (11.5-14.8); LYMPHOCYTES # (AUTO) 2.3 /CMM (0.8-4.8); LYMPHOCYTES % (AUTO) 24.2 % (20.0-44.0); MEAN CORPUSCULAR HGB CONC 34 g/dl (31.0-36.0); MEAN CORPUSCULAR VOLUME 84 fL (82-100); MONOCYTES # (AUTO) 0.5 /CMM (0.1-1.30); MONOCYTES % (AUTO) 5.4 % (2.0-12.0); NEUTROPHILS # (AUTO) 6.6 /CMM (1.8-8.9); NEUTROPHILS % (AUTO) 68.8 % (43.0-81.0); PLATELET COUNT (AUTO) 336 /CMM (150-450); RED BLOOD CELL COUNT(AUTO) 4.62 MIL/uL (4.0-5.2); WHITE BLOOD COUNT (AUTO) 9.5 K/uL (4.3-11.0)
== END 2017-10-16 23:59 | disposition home or self-care (01) ==
LOC: LAB 13:55
PROVIDERS: ATTEND Legal Medicine
DX: Z76.0 Encounter for issue of repeat prescription (principal)
CPT/HCPCS: 36415; 80053-TC; 85025-TC; 85378-TC

== ENCOUNTER 2017-10-22 11:52 | Inpatient (IN) | payer BC ==
[~2017-10-22] VITALS: Ht 167.6 cm; Wt 94.3 kg
--- NOTE | 2017-10-22 12:00 | NUR ---
CP SINCE 0830 AM. MIDSTERNAL CP RADIATING TO NECK, NAD NOTED, VSS, RESP EVEN AND UNLABORED. PT WAS PUT ON MONITOR AND HOSPITAL GOWN. WAITING FOR MD HARO
[2017-10-22 12:12] LABS: BASOPHILS % (AUTO) 0.3 % (0.0-2.0); EOSINOPHILS % (AUTO) 1.3 % (0.0-6.0); HEMATOCRIT 41 % (33-45); HEMOGLOBIN 13.6 g/dL (11.5-14.8); LYMPHOCYTES # (AUTO) 2.2 /CMM (0.8-4.8); LYMPHOCYTES % (AUTO) 21.4 % (20.0-44.0); MEAN CORPUSCULAR HGB CONC 33 g/dl (31.0-36.0); MEAN CORPUSCULAR VOLUME 83 fL (82-100); MONOCYTES # (AUTO) 0.5 /CMM (0.1-1.30); MONOCYTES % (AUTO) 4.9 % (2.0-12.0); NEUTROPHILS # (AUTO) 7.4 /CMM (1.8-8.9); NEUTROPHILS % (AUTO) 72.1 % (43.0-81.0); PLATELET COUNT (AUTO) 408 /CMM (150-450); RDW COEFFICIENT OF VARIATION 12.3 (11.5-15.0); RED BLOOD CELL COUNT(AUTO) 4.98 MIL/uL (4.0-5.2); WHITE BLOOD COUNT (AUTO) 10.2 K/uL (4.3-11.0)
[2017-10-22] MEDS ORDERED: ASPIRIN 81 MG TAB.CHEW ONE (12:18)
[2017-10-22 12:21] LABS: CARBON DIOXIDE 27 mmol/L (21-32); CHLORIDE 102 mmol/L (98-107); CREATININE 0.8 mg/dL (0.6-1.3); GLUCOSE 93 mg/dL (74-106); POTASSIUM 4.2 mmol/L (3.5-5.1); SODIUM SERUM 137 mmol/L (136-145); UREA NITROGEN, BLOOD 12 mg/dL (7-18)
[2017-10-22 12:30] LABS: TROPONIN I < 0.017 ng/mL (0.00-0.056)
[2017-10-22] MEDS ORDERED: IV NS 0.9% 1,000 ML BAG IV ONE (12:30)
[2017-10-22] MEDS ORDERED: ASPIRIN 81 MG TAB.CHEW PO ONE (12:30)
--- NOTE | 2017-10-22 13:14 | NUR ---
CALLED [facility]
--- NOTE | 2017-10-22 13:48 | NUR ---
REPAGED DR ROSS
[2017-10-22 13:49] LABS: CHOLESTEROL 190 mg/dL (<200); HDL CHOLESTEROL 60 mg/dL (40-60); LDL 123 mg/dL (0-99); TRIGLYCERIDES 61 mg/dL (30-150)
--- NOTE | 2017-10-22 13:51 | NUR ---
PATIENT ASSIGNED TO TELE 316 DX CHEST PAIN
--- NOTE | 2017-10-22 14:11 | NUR ---
CALLED DR ROSS'S OFFICE SPOKE WITH JANITOR SUPERVISOR, I NOTIFIED HER THAT DR REYES NEEDS TO SPEAK WITH DR ROSS, SHE NOTIFIED ME THAT "DR ROSS DOES NOT LIKE TO BE INTERRUPTED AND HE WILL CALL BACK SOON HE CAN"
--- NOTE | 2017-10-22 14:40 | NUR ---
RN NOTES PATIENT A/OX4, BREATHING EVEN AND UNLABORED, PATIENT DESCRIBES CHEST PAIN " COMES AND GOES, RADIATING TO HER LEFT SIDE OF THE NECK" PATIENT COMFORTABLE AT THIS TIME. PATIENT IS ADMITTED WITH DX OF TACHYCARDIA, UNDER DR. ROSS, ORDERS NOTED AND CARRIED OUT. SKIN ASSESSMENT DONE, SKIN INTACT. LEFT AC PIV PATENT AND FLUSHES WELL. NEEDS ATTENDED AND MET. WILL CONTINUE TO MONITOR.
[2017-10-22] MEDS ORDERED: ONDANSETRON HCL/PF 4 MG/2 ML VIAL IV PRN (16:00)
[2017-10-22] MEDS ORDERED: ACETAMINOPHEN 325 MG TABLET PO PRN (16:00)
[2017-10-22] MEDS: IV D5/ 0.9% NACL 1,000 ML IV PRN (16:34)
[2017-10-22] MEDS ORDERED: RIVAROXABAN 10 MG TABLET PO SCH (17:00)
--- NOTE | 2017-10-22 18:18 | NUR ---
RN NOTES PATIENT A/OX4, DENIES PAIN AT THIS TIME, NO SOB NOTED, PIV PATENT AND FLUSHES WELL, IVF ONGOING AND TOLERATING WELL, AT BEDSIDE, ASSISTED WITH ADLS, NEEDS ATTENDED AND MET, CALL LIGHT WITHIN REACH, WILL ENDORSE TO TAPE FASTENER MACHINE OPERATOR FOR LAZARO.
--- NOTE | 2017-10-22 19:35 | NUR ---
TELE/RN OPENING NOTES PT RECEIVED AWAKE, AT BEDSIDE. ON ROOM AIR, BREATHING EVEN AND UNLABORED. ON TELE MONITOR SHOWING SINUS RHYTHM WITH HR AT 95. DENIES SOB OR CHEST PAIN/DISCOMFORT AT THIS TIME. STATES SHE IS COMFORTABLE. IV TO LAC PATENT AND INTACT RUNNING IVF ORDERED. BED IN LOW/LOCKED POSITION WITH CALL LIGHT IN REACH. SIDE RAILS UPX2. WILL CONTINUE TO MONITOR
[2017-10-22 20:00] VITALS: BP 112/63
--- NOTE | 2017-10-22 21:07 | NUR ---
TELE/RN NOTES PT C/O OF HEADACHE. ADMINISTERED PRN TYLENOL ORDERED. WILL MONITOR FOR EFFECTIVENESS
[2017-10-23] VITALS: BP 106/54
--- NOTE | 2017-10-23 01:50 | NUR ---
TELE/RN NOTES PT NOTED TO HAVE CHEST DISCOMFORT 08/02. QE=560/73, HR=71, SPO2= 100%. SR ON THE MONITOR. PAIN LASTED FOR A COUPLE MINUTES THAN SUBSIDED. DID NOT WANT PAIN MEDICATION AT THIS TIME.
[2017-10-23 06:41] LABS: BASOPHILS % (AUTO) 0.2 % (0.0-2.0); EOSINOPHILS % (AUTO) 0.3 % (0.0-6.0); HEMATOCRIT 37 % (33-45); HEMOGLOBIN 12.5 g/dL (11.5-14.8); LYMPHOCYTES # (AUTO) 2.6 /CMM (0.8-4.8); LYMPHOCYTES % (AUTO) 36.4 % (20.0-44.0); MEAN CORPUSCULAR HGB CONC 34 g/dl (31.0-36.0); MEAN CORPUSCULAR VOLUME 84 fL (82-100); MONOCYTES # (AUTO) 0.6 /CMM (0.1-1.30); MONOCYTES % (AUTO) 8.4 % (2.0-12.0); NEUTROPHILS # (AUTO) 3.9 /CMM (1.8-8.9); NEUTROPHILS % (AUTO) 54.7 % (43.0-81.0); PLATELET COUNT (AUTO) 314 /CMM (150-450); RDW COEFFICIENT OF VARIATION 13.3 (11.5-15.0); RED BLOOD CELL COUNT(AUTO) 4.33 MIL/uL (4.0-5.2); WHITE BLOOD COUNT (AUTO) 7.2 K/uL (4.3-11.0)
[2017-10-23 06:52] LABS: CALCIUM, SERUM 8.1 mg/dL (8.5-10.1); CREATININE 0.6 mg/dL (0.6-1.3); POTASSIUM 3.9 mmol/L (3.5-5.1)
[2017-10-23] MEDS ORDERED: PANTOPRAZOLE 40 MG TABLET.DR PO SCH (07:30)
--- NOTE | 2017-10-23 07:40 | NUR ---
DATA WAREHOUSE ARCHITECT OPENING NOTE PATIENT IS ALERT AND ORIENTED X4. NO PAIN AT THIS TIME. NO SOB OR DISTRESS NOTED. CALL LIGHT WITHIN REACH AND SAFETY MEASURES IMPLEMENTED. ABLE TO COMMUNICATE NEEDS. TELE SR-90. IV INTACT AND PATENT NO REDNESS OR SWELLING NOTED, WITH IV FLUIDS RUNNING AT THIS TIME. WILL CONTINUE TO MONITOR THROUGHOUT SHIFT
[2017-10-23] MEDS: IV D5/ 0.9% NACL 1,000 ML IV PRN (07:42)
--- NOTE | 2017-10-23 07:42 | NUR ---
TELE/RN CLOSING NOTES PT RESTING COMFORTABLY IN BED, AROUSABLE TO NEARBY NOISE. ON ROOM AIR, BREATHING EVEN AND UNLABORED. ON TELE MONITOR SHOWING SINUS TACH WITH HR AT 106. DURING SHIFT HR RANGED FROM 56 - 95. DENIES SOB OR CHEST PAIN/DISCOMFORT AT THIS TIME. IV TO LAC PATENT AND INTACT RUNNING IVF ORDERED. BED IN LOW/LOCKED POSITION WITH CALL LIGHT IN REACH. SIDE RAILS UPX2. ENDORSED TO DAY SHIFT RN LAZARO.
[2017-10-23 08:00] VITALS: BP 103/67
[2017-10-23] MEDS ORDERED: CALCIUM CARBONATE 500 MG TAB.CHEW PO SCH (09:00)
--- NOTE | 2017-10-23 13:15 | NUR ---
MS SUPERVISOR SEAMING NOTE PATIENT SENT HOME IN STABLE CONDITION TO HOME. NO PAIN AT THIS TIME. NO SOB OR DISTRESS NOTED. ALL DUE MEDICATIONS GIVEN ORDERED. ALL NURSING CARE NEEDS ATTENDED TO NEEDED. IV REMOVED, SKIN INTACT. NO WOUNDS PRESENT. AMBULATORY. ALL BELONGINGS ACCOUNTED FOR AT DISCHARGE. DISCHARGE INSTRUCTIONS GIVEN TO PATIENT AT BEDSIDE, PATIENT ABLE TO RETURN INSTRUCTIONS. FOLLOW UP APPOINTMENT WITH DR. LEONARD IN ONE WEEK AND WITH PRIMARY MD. WORK NOTE GIVEN TO PATIENT. LEFT VIA PRIVATE CAR WITH .
== END 2017-10-23 13:15 | disposition home or self-care (01) | DRG 313 ==
LOC: ER 11:58 → TELE 14:10 → MED 10-23 09:02
PROVIDERS: ADMIT Legal Medicine; ATTEND Legal Medicine
DX: R07.89 Other chest pain (principal); D68.51 Activated protein C resistance; Z86.711 Personal history of pulmonary embolism; Z86.718 Personal history of other venous thrombosis and embolism; Z79.01 Long term (current) use of anticoagulants; Z90.49 Acquired absence of other specified parts of digestive tract; Z98.890 Other specified postprocedural states; Z88.1 Allergy status to other antibiotic agents; R00.0 Tachycardia, unspecified
CPT/HCPCS: 36415; 71045-TC; 80048-TC; 80061-TC; 83880; 84484-TC; 84703-TC; 85025-TC; 85378-TC; 85730-TC; 87081-TC; 93307-TC; A4606; J3490; J7042; Z7610

== ENCOUNTER 2017-11-07 07:03 | Outpatient (CLI) | payer BC ==
[2017-11-07 07:35] LABS: BASOPHILS # (AUTO) 0.1 /CMM (0.0-0.2); BASOPHILS % (AUTO) 0.7 % (0.0-2.0); EOSINOPHILS % (AUTO) 0.8 % (0.0-6.0); HEMATOCRIT 39 % (33-45); HEMOGLOBIN 13.5 g/dL (11.5-14.8); LYMPHOCYTES # (AUTO) 1.6 /CMM (0.8-4.8); LYMPHOCYTES % (AUTO) 11.9 % (20.0-44.0); MEAN CORPUSCULAR HGB CONC 34 g/dl (31.0-36.0); MEAN CORPUSCULAR VOLUME 84 fL (82-100); MONOCYTES % (AUTO) 7.1 % (2.0-12.0); NEUTROPHILS # (AUTO) 10.7 /CMM (1.8-8.9); NEUTROPHILS % (AUTO) 79.5 % (43.0-81.0); PLATELET COUNT (AUTO) 336 /CMM (150-450); RDW COEFFICIENT OF VARIATION 13.3 (11.5-15.0); RED BLOOD CELL COUNT(AUTO) 4.69 MIL/uL (4.0-5.2); WHITE BLOOD COUNT (AUTO) 13.4 K/uL (4.3-11.0)
[2017-11-07 07:51] LABS: ALBUMIN 3.6 g/dL (3.4-5.0); BILIRUBIN,TOTAL 0.3 mg/dL (0.2-1.0); CALCIUM, SERUM 8.8 mg/dL (8.5-10.1); CREATININE 0.8 mg/dL (0.6-1.3); POTASSIUM 4.2 mmol/L (3.5-5.1); TOTAL PROTEIN, SERUM 7.6 g/dL (6.4-8.2)
== END 2017-11-07 23:59 | disposition home or self-care (01) ==
LOC: LAB 07:03
PROVIDERS: ATTEND Legal Medicine
DX: Z00.01 Encounter for general adult medical examination with abnormal findings (principal); R79.89 Other specified abnormal findings of blood chemistry
CPT/HCPCS: 36415; 80053-TC; 85025-TC; 85378-TC